=== PATIENT | male | born 1985 | race Two or more races ===

== ENCOUNTER 2018-10-19 07:52 | Emergency (ER) | payer SELFPAY ==
[~2018-10-19] VITALS: Ht 170.2 cm; Wt 77.6 kg
[2018-10-19 07:58] VITALS: BP 125/75
[2018-10-19] MEDS ORDERED: TDAP [DIPH/PERTUSSIS/TET] 0.5 ML VIAL IM ONE ×2 (08:27→08:30)
--- NOTE | 2018-10-19 08:33 | NUR ---
For discharge- Aftercare instructions given verbalized understanding home ambulatory stable
== END 2018-10-19 08:33 | disposition home or self-care (01) ==
LOC: ER 07:52
DX: S91.135A Puncture wound without foreign body of left lesser toe(s) without damage to nail, initial encounter (principal); W22.8XXA Striking against or struck by other objects, initial encounter; Y93.89 Activity, other specified; Y92.89 Other specified places as the place of occurrence of the external cause; Y99.8 Other external cause status
CPT/HCPCS: 90715

== ENCOUNTER 2019-02-28 08:44 | Emergency (ER) | payer SELFPAY ==
[~2019-02-28] VITALS: Ht 170.2 cm; Wt 90.7 kg
--- NOTE | 2019-02-28 09:10 | NUR ---
patient came in to the ER c/o r hand nicholemp x 2 months. On room air, breathing evenly and unlabored. Kept comfortable, will continue to monitor accordingly.
[2019-02-28 11:36] VITALS: BP 125/81
--- NOTE | 2019-02-28 11:37 | NUR ---
Patient discharged to home in stable condition. Written and verbal after care instructions given. Patient verbalizes understanding of instruction.
== END 2019-02-28 11:37 | disposition home or self-care (01) ==
LOC: ER 08:44
DX: M67.441 Ganglion, right hand (principal)
CPT/HCPCS: 73130-TC